=== PATIENT | female | born 1970 | race Caucasian/White ===

== ENCOUNTER 2016-10-11 13:14 | Emergency (ER) | payer OTHER ==
[~2016-10-11] VITALS: Ht 170.2 cm; Wt 77.1 kg
[~2016-10-11 13:14] MED LIST: METHIMAZOLE5 MG PO; MULTI VITAMINS1 TAB PO
--- NOTE | 2016-10-11 14:01 | ED UPPER/LOWER EXTREMITY COMPL ---
History of Present Illness General Chief Complaint: Lower Extremity Problems Stated Complaint: RT CALF PAIN AND SWELLING Source: patient Exam Limitations: no limitations Vital Signs & Intake/Output Vital Signs & Intake/Output Vital Signs Date Time Temp Pulse Resp B/P Pulse O2 O2 Flow FiO2 Ox Delivery Rate 10/11 1520 98.1 78 18 130/80 97 Room Air 10/11 1331 98.2 73 18 128/82 97 Room Air Allergies Coded Allergies: NO KNOWN ALLERGIES (05/29/14) Triage Note: RECEIVED 46 YO FEMALE C/O RIGHT CALF SWELLING AND PAIN X FEW MONTHS. Triage Nurses Notes Reviewed? yes Onset: Gradual Duration: 1 month Timing: no prior history Severity: mild Severity Numbers: 4 Pain/Injury Location: Right: Leg. Method of Injury: unknown No Modifying Factors: none Associated Symptoms: swelling HPI: Patient is a 46-year-old female presenting to the emergency department with chief complaint of right calf tightness and swelling nothing going on for the past one month. Denies any injury. She reports that she also gets some intermittent pain in the anterior and posterior aspect of the right patella. Denies numbness or tingling. No history of blood clots. Denies recent travel. She is not on any control. No recent surgery. No family history of blood clots. She is active and mobile. Denies any chest pain shortness of breath nausea vomiting fevers or chills. (GARTH HILARIO) Reconcile Medications Methimazole 5 MG TABLET 1 TAB PO DAILY AC THYROID (Reported) (EH LEARY,FERN) Past History Travel History Traveled to [place] past 21 day No Medical History Any Pertinent Medical History? 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 No (GARTH HILARIO) Review of Systems Review of Systems Constitutional: Reports: no symptoms. Comments Review of systems: See HPI, All other systems negative. Constitutional, no chills fever or weight loss HEENT: No visual changes no sore throat no congestion Cardiovascular: No chest pain ,palpitation , orthopnea Skin, no jaundice no rashes Respiratory: No dyspnea cough sputum or hemoptysis GI: No nausea no vomiting : No dysuria No hematuria Muscle skeletal: no back pain, no neck pain, Neurologic: No numbness no headaches Psych: No stress anxiety or depression,. Heme/endocrine: No bruising no bleeding no polyuria or polydipsia Immunology: No splenectomy or history of AIDS (MYRNA DIAZ,GARTH) Physical Exam Physical Exam General Appearance: well developed/nourished, no apparent distress, alert, awake , comfortable Comments: Well-developed well-nourished person in no acute distress HEENT:Pupils equally round and reactive to light and accommodation. Nose is atraumatic. Neck: Supple, no lymphadenopathy, normal range of motion without pain or tenderness Back: Nontender Cardiovascular: Regular rate and rhythms no murmurs rubs or gallops, normal JVP Respiratory: Chest nontender. No respiratory distress.breath sounds clear to auscultation bilaterally Extremity: Right calf is slightly larger than the left calf, right calf is soft, mildly tender. Pedal pulses are 2+ bilaterally. No tenderness to palpation over the right patella or the popliteal space on the right. Full range of motion of lower extremity is bilaterally without difficulty or pain. Mild pain to palpation of the anterior aspect of the right patella. Negative anterior and posterior drawer test. Neuro: Alert oriented x3, motor sensory normal Skin: No appreciable rash on exposed skin, skin is warm and dry. Psych: Mood and affect is normal, memory and judgment is normal. (MYRNA DIAZ,GARTH) Progress Differential Diagnosis: DVT, sprain, tendon injury, Escamilla cyst Plan of Care: Orders Procedure Date/time Status US-UNILATERAL VENOUS DOPPLER 10/11 1334 Active Diagnostic Imaging: Viewed by Me: Ultrasound. Discussed w/RAD: Ultrasound. Radiology Impression: PATIENT: VERA VALLE PRESENT AGE: 46 PATIENT ACCOUNT NO: [id number] : 70 LOCATION: [facility] ORDERING PHYSICIAN: GARTH DIAZ SERVICE DATE: 10/11/16 EXAM TYPE: US - US-UNILATERAL VENOUS DOPPLER EXAMINATION: US TRIPLEX LOWER EXTREMITY, RIGHT CLINICAL INFORMATION: 46-year-old female, right lower calf pain. Suspected DVT. COMPARISON: None TECHNIQUE: Color-flow triplex imaging with spectral analysis and compression Doppler were performed on the right lower extremity. FINDINGS: Respiratory variation, normal compression and augmented flow are noted throughout the lower extremity. The visualized common femoral vein, superficial femoral vein, profunda femoral vein, popliteal vein and midcalf peroneal and posterior tibial venous segments show no evidence of deep venous thrombosis. There is no Escamilla's cyst. IMPRESSION: Normal triplex scan without evidence of deep venous thrombosis involving the right lower extremity. Comments: Declines pain medication on arrival. Patient has no risk factors for DVT although right calf does seem slightly larger but is soft, non-firm. pulses are intact. Patient will have ultrasound to rule out DVT. 10/11/2016 3:12:36 PM patient and family member informed of negative ultrasound. She was advised to follow-up with primary care physician. Etiology of leg swelling unclear at this time although patient may need to see orthopedics for knee pathology as she has had knee pain in the past. (GARTH HILARIO) Departure Departure Time of Disposition: 1508 Disposition: HOME OR SELF CARE Condition: Stable Clinical Impression Primary Impression: Leg pain Qualifiers: Laterality: right Qualified Code: M79.604 - Pain in right leg Referrals: COLLEEN MATOS MD (PCP/Family) Additional Instructions: follow up with pcp call to make appt. rest, ice and elevate. take motrin or tylenol for pain. return for worsening symptoms Departure Forms: Customer Survey General Discharge Information (GARTH HILARIO) PA/RECREATION COUNSELOR Co-Sign Statement Statement: ED Attending supervision documentation- [] I saw and evaluated the patient. I have also reviewed all the pertinent lab results and diagnostic results. I agree with the findings and the plan of care as documented in the PA's/RECREATION COUNSELOR's documentation. x I have reviewed the ED Record and agree with the PA's/RECREATION COUNSELOR's documentation. [] Additions or exceptions (if any) to the PAs/RECREATION COUNSELOR's note and plan are summarized below: [] (EH LEARY,FERN)
--- NOTE | 2016-10-11 15:02 | ULTRASOUND REPORT ---
EXAMINATION: US TRIPLEX LOWER EXTREMITY, RIGHT CLINICAL INFORMATION: 46-year-old female, right lower calf pain. Suspected DVT. COMPARISON: None TECHNIQUE: Color-flow triplex imaging with spectral analysis and compression Doppler were performed on the right lower extremity. FINDINGS: Respiratory variation, normal compression and augmented flow are noted throughout the lower extremity. The visualized common femoral vein, superficial femoral vein, profunda femoral vein, popliteal vein and midcalf peroneal and posterior tibial venous segments show no evidence of deep venous thrombosis. There is no Escamilla's cyst. IMPRESSION: Normal triplex scan without evidence of deep venous thrombosis involving the right lower extremity.
[2016-10-11 15:20] VITALS: BP 130/80
== END 2016-10-11 15:20 ==
LOC: ERH 13:14
DX: M79.604 Pain in right leg (principal)